=== PATIENT | female | born 1960 | race Caucasian/White ===

== ENCOUNTER 2018-12-26 05:21 | Observation (INO) | payer SELFPAY ==
[~2018-12-26] VITALS: Ht 157.5 cm; Wt 81.4 kg
[2018-12-26] MEDS ORDERED: CEFAZOLIN SOD 1 GM/NS 50ML 50 ML IV ONE (07:18)
[2018-12-26] MEDS ORDERED: HYDROMORPHONE 2MG/ML 2 MG/ML ML ONE (08:47)
[2018-12-26] MEDS ORDERED: HYDROMORPHONE 1MG/1ML INJ IV PRN (11:00)
[2018-12-26] MEDS ORDERED: ACETAMINOPHEN 325 MG TAB PO PRN (11:00)
[2018-12-26] MEDS ORDERED: FENTANYL CITRATE/PF 100MCG/2 ML INJ ONE ×2 (11:07→14:20)
[2018-12-26 12:17] VITALS: BP 188/79
[2018-12-26] MEDS: HYDROCODONE/APAP 7.5MG-325MG 1 EA TAB PO PRN (12:39)
[2018-12-26 12:45] VITALS: BP 174/75
--- NOTE | 2018-12-26 12:45 | NUR ---
RECEIVED PATIENT AOX3, NO SIGNS OF DISTRESS, SITTING IN BED 30 DEGREE ANGLE, 2 CY DRAINAGE FLOWING AND PATENT, RIGHT FOREARM 20G IV, 16 FR CORONADO INTACT AND PATENT, URINE CLEAR YELLOW, RESTING COMFORTABLY, MEDICATED FOR PAIN, CALL LIGHT WITHIN REACH, WILL CONTINUE TO MONITOR
[2018-12-26] MEDS ORDERED: HYDRALAZINE HCL 20 MG/ML VIAL ONE (12:46)
[2018-12-26] MEDS ORDERED: GLYCOPYRROLATE INJ 1MG/ 5 ML SYR ONE (12:46)
[2018-12-26] MEDS ORDERED: PROPOFOL IV EMULSION 10 MG/ML 20 ML VIAL ONE (12:46)
[2018-12-26] MEDS ORDERED: SEVOFLURANE INHAL SOLN 250 ML PEN BTL ONE (12:46)
[2018-12-26] MEDS ORDERED: LABETALOL HCL 5 MG/ML 20ML VIAL ONE (12:46)
[2018-12-26] MEDS ORDERED: ACETAMINOPHEN 1000 MG/100 ML IV ONE (12:46)
[2018-12-26] MEDS ORDERED: ROCURONIUM BROMIDE 10 MG/ML 5ML VIAL ONE (12:46)
[2018-12-26] MEDS ORDERED: DEXAMETHASONE SOD PHOS INJ 4 MG/ML VIAL ONE (12:46)
[2018-12-26] MEDS ORDERED: NEOSTIGMINE 5 MG/5ML SYR ONE (12:46)
[2018-12-26] MEDS ORDERED: ONDANSETRON HCL INJ 2MG/ML 2ML 2 MG/ML VIAL ONE (12:46)
[2018-12-26] MEDS ORDERED: LIDOCAINE HCL 2% LOCAL INJ 5 ML SDV VIAL INJ ONE (12:46)
[2018-12-26] MEDS: CEFAZOLIN SOD 1 GM/NS 50ML 50 ML IV SCH ×2 (14:00→21:21)
[2018-12-26] MEDS ORDERED: MIDAZOLAM HCL 2 MG/2 ML VIAL ONE (14:20)
--- NOTE | 2018-12-26 15:11 | Operative Report ---
DATE OF PROCEDURE: 12/26/2018 SURGEON: Dillan Berg MD PREOPERATIVE DIAGNOSIS: Abdominal lipodystrophy with diastasis recti. POSTOPERATIVE DIAGNOSIS: Abdominal lipodystrophy with diastasis recti. PROCEDURE: Abdominoplasty with plication of diastasis recti. ANESTHESIA: General. HISTORY: The patient is a 58-year-old female, who wishes to have correction of abdominal lipodystrophy and diastasis recti. The risks, benefits, and alternatives of treatment were discussed with the patient and the . They are prepared to undergo the procedure as outlined. The patient signed the [employer] consent forms. DESCRIPTION OF PROCEDURE: The patient was marked preoperatively in the holding area in the upright position. She was brought to the operating theater and after the induction of adequate general anesthesia, placement of a Fajardo catheter and Venodyne compression boots, she was prepped and draped in a supine position. A time-out was performed. The procedure was begun by marking the midline from xiphoid to pubic symphysis. A transverse incision was marked out approximately 7 cm from the introitus, carried laterally towards the anterior superior iliac spines and then curving laterally around the hips. The incision was made through the skin and subcutaneous tissues. Bleeding was controlled using the electrocautery. Using the electrocautery, the incision was deepened through Candace's fascia until the anterior rectus fascia was identified. Using this as a guide, the anterior skin and subcutaneous tissue was elevated up to the level of the umbilicus. Care was taken to cauterize all vessels. At the level of the umbilicus, the dissection was temporarily paused while the umbilicus was then sharply circumscribed and released from the skin and subcutaneous tissue, maintaining a generous amount of subcutaneous tissue around the stalk to maintain vascularity. Once the umbilicus had been completely released, the skin and subcutaneous tissue of the anterior abdominal wall was once again elevated from the umbilicus to the xiphoid in the midline and the costal margins bilaterally. At this point, the diastasis recti was evaluated. A plication of the anterior rectus sheath was then marked out and planned. The maximum width of the plication was at the level of the umbilicus and this corresponded to approximately 8 cm in length starting at the xiphoid using 0 Ethibond in an interrupted buried [id number] fashion. The plication was carried out from the xiphoid to the cephalad border of the umbilical stalk. At this point, the plication began below the level of the umbilical stalk down to the level of the pubic symphysis. At this juncture, the patient had a head of the bed elevated and the redundant skin and subcutaneous tissues of the anterior abdominal wall were marked down and then judiciously excised. The wound was made hemostatic using the electrocautery. The mons pubis was defatted of a large amount of subcutaneous tissue. Bleeding was controlled using electrocautery. At this juncture, irrigation of the abdominal wound was performed and then hemostasis was made absolute using the electrocautery. Two 15-Arabic Yobany-Cullen drains were placed at the lateral recesses of the incision, one coursing below the umbilicus and the other coursing above the umbilicus and this was secured to the skin using 3-0 nylon suture. At this juncture, the Candace's fascia was approximated with 2-0 PDS in interrupted fashion for the entire abdominal wound. The dermis was approximated with an absorbable Insorb stapler. Directly over the umbilicus a 2 cm vertical ellipse of tissue had been marked out. It was then incised through skin and subcutaneous tissue. Bleeding controlled using electrocautery. The skin and subcutaneous tissue were then removed and the subcutaneous tissue was incised using the electrocautery through the full-thickness of the anterior abdominal wall. At this point, the umbilicus was noted to be lying at the base of the wound. The area immediately surrounding the new umbilical site was defatted using the electrocautery. At this juncture, the umbilicus was brought out onto the anterior abdominal wall and secured in place in layers as follows. A 3-0 Monocryl was used in an interrupted buried fashion to approximate the deep dermis, 5-0 nylon in a simple interrupted fashion was used to approximate the epidermis. At this juncture the abdominal wound was then closed with 4-0 Monocryl in running subcuticular fashion. Steri-Strips were applied to the incisions. The umbilicus was stented with Xeroform gauze and then sterile dressings were applied. The drains were placed on suction. The patient was then transferred to her hospital bed and then transferred to the recovery room for further care and treatment. The estimated blood loss for the procedure was approximately 150 mL. The patient tolerated the procedure well and was then sent for hospital bed for overnight observation. MD ED Chan/GRANT /[id number]
[2018-12-26] MEDS: ONDANSETRON HCL 4 MG ORAL DISINTEGRATING TAB SL PRN ×2 (15:57→20:52)
[2018-12-26] MEDS: HYDROMORPHONE 2MG/ML 2 MG/ML ML IV PRN ×2 (15:57→20:52)
[2018-12-26] MEDS: LACTATED RINGER'S 1,000 ML IV SCH ×2 (15:58→20:47)
[2018-12-26] MEDS: DOCUSATE SODIUM 100 MG CAP PO SCH (16:53)
--- NOTE | 2018-12-26 16:53 | NUR ---
GAVE PATIENT DILAUDID IV ALONG WITH ZOFRAN PO, PATIENT FEELING NAUSEA, CALLED DR. GAMINO FOR CHANGE IN ZOFRAN MEDICATION, WILL CONTINUE TO MONITOR
--- NOTE | 2018-12-26 17:00 | NUR ---
SPOKE WITH DR. GAMINO ABOUT THE PATIENT'S NAUSEA AND VOMITING, WAS TOLD TO GIVE ANOTHER ORDER OF ZOFRAN TO RELIEVE NAUSEA
[2018-12-26 17:07] VITALS: BP 139/60
[2018-12-26] MEDS ORDERED: ONDANSETRON HCL 4 MG ORAL DISINTEGRATING TAB PO ONE (17:15)
--- NOTE | 2018-12-26 17:32 | NUR ---
PRESENTED PATIENT WITH ONE TIME DOSE OF ZOFRAN FOR HER NAUSEA, PATIENT VOICED THAT SHE WAS OK FOR NOW AND WILL LET ME KNOW IF SHE NEEDS IT LATER. CALL LIGHT IS WITHIN REACH AND WILL CONTINUE TO MONITOR
--- NOTE | 2018-12-26 19:20 | NUR ---
BEDSIDE SHIFT REPORT RECEIVED. PT LAYING SEMI FOWLERS IN BED, AAOX3, RR EVEN AND NON-LABORED, O2 BY NC AT 2L. NO S/SX OF DISTRESS NOTED. CORONADO INTACT DRAINING TO BEDSIDE BAG. X2 CY DRAIN TO ANTERIOR ABD INTACT DRAINING SANGUINOUS FLUID. ASSISTED PT TO SITTING POSITION AND ASSISTED PT TO AMBULATE IN HERR. PT HAS STEADY GAIT, FAMILY AND NURSE AT SIDE. PT AMBULATED 200FT. ASSISTED PT TO LAY SEMI FOWLERS IN BED, LEFT PT LAYING SEMI FOWLERS IN BED, BED IN LOW LOCKED POSITION, SIDE RAILS UPX2, CALL LIGHT AND PHONE WITHIN REACH.
[2018-12-26 20:00] VITALS: BP 155/64
--- NOTE | 2018-12-26 20:40 | NUR ---
PTREPORTS FEELING BURNING IN THROAT AND REQUESTING AN ANTACID. PAGE PLACED FOR MD GAMINO.
--- NOTE | 2018-12-26 21:06 | NUR ---
SPOKE WITH MD GAMINO CONCERNING PT REPORTS OF THROAT BURNING. NEW ORDERS RECEIVED.
[2018-12-26 21:16] VITALS: BP 155/64
[2018-12-26] MEDS: PANTOPRAZOLE SOD 40 MG TABEC PO SCH (21:21)
[2018-12-27] VITALS: BP 140/62
[2018-12-27] MEDS: HYDROCODONE/APAP 7.5MG-325MG 1 EA TAB PO PRN ×2 (00:01→06:10)
--- NOTE | 2018-12-27 03:20 | NUR ---
PT AMBULATING IN HERR WITH FAMILY AT SIDE. STEADY GAIT NOTED. PT AMBULATED 200FT.
--- NOTE | 2018-12-27 03:40 | NUR ---
(L) CY DRAIN INSERTION SITE NOTED TO BE LEAKING. APPLIED DRAIN SPONGE AROUND DRAIN AND SECURED WITH PAPER TAPE.
[2018-12-27 04:00] VITALS: BP 123/55
[2018-12-27] MEDS: CEFAZOLIN SOD 1 GM/NS 50ML 50 ML IV SCH (06:10)
[2018-12-27] MEDS: LACTATED RINGER'S 1,000 ML IV SCH (06:19)
--- NOTE | 2018-12-27 07:04 | NUR ---
Received patient this morning, alert and responsive, in bed during rounds, and pains well managed, no resp distress, fluids running as ordered, CY drains in place, will monitor.
[2018-12-27] MEDS: PANTOPRAZOLE SOD 40 MG TABEC PO SCH (07:30)
--- NOTE | 2018-12-27 07:42 | NUR ---
Rounds by surgeon and changed dressing to abdomen, educated patient on emptying draining, no sitting, may use recliner, encourage ambulation, drink plenty of fluids, prescriptions given to patient and pending voiding.
[2018-12-27 07:56] VITALS: BP 133/58
[2018-12-27] MEDS ORDERED: KEFLEX500 MG PO (08:01)
[2018-12-27] MEDS ORDERED: NORCO 5-325 TA1 EACH PO (08:05)
[2018-12-27] MEDS: DOCUSATE SODIUM 100 MG CAP PO SCH (09:00)
[2018-12-27] MEDS ORDERED: ENOXAPARIN SOD INJ 40 MG/0.4 ML SYR SC SCH (09:00)
[2018-12-27 09:15] VITALS: BP 133/58
--- NOTE | 2018-12-27 09:49 | NUR ---
GAVE PACKET OF INFORMATION WITH [employer] FOR ASSISTANCE WITH LOW TO NO INCOME TO PATIENT. RESOURCES THAT PATIENT MAY BE ABLE TO FOLLOW UP UPON DISCHARGE. PT EDUCATED ON EACH RESOURCE AND UNDERSTANDING HOW TO FOLLOW UP TO SEE IF QUALIFIED FOR EACH RESOURCE.
--- NOTE | 2018-12-27 10:02 | NUR ---
Patient assisted to bathroom and voided x2 post removal of Fajardo cath.
== END 2018-12-27 10:37 | disposition home or self-care (01) ==
LOC: OR 05:21 → PACU V 10:48 → MED/SURG 12:09
PROVIDERS: ADMIT Plastic Surgery; ATTEND Plastic Surgery
DX: L98.7 Excessive and redundant skin and subcutaneous tissue (principal); M62.08 Separation of muscle (nontraumatic), other site; E88.1 Lipodystrophy, not elsewhere classified
CPT/HCPCS: 17999; 93005; G0378 ×2; J0131; J0360; J0690 ×2; J1100; J1170; J1650; J2001; J2250; J2405; J2704; J3490 ×2; J7121; Q0162; S0164 ×2